=== PATIENT | female | born 1980 | race Hispanic/Latino ===

== ENCOUNTER 2021-07-12 08:28 | Emergency (ER) | payer SELFPAY ==
[2021-07-12] MEDS ORDERED: Ketorolac Tromethamine 30 MG/ML VIAL ONE (10:04)
[2021-07-12] MEDS ORDERED: Clindamycin/D5W 900 mg/50 ml Premix Bag ONE (10:04)
[2021-07-12] MEDS ORDERED: Boostrix 0.5 ML (Tdap) VIAL ONE (10:04)
[2021-07-12] MEDS ORDERED: Lidocaine 1% (PF) 30 ML VIAL ONE (10:07)
[2021-07-12 11:01] LABS: #Eosinphils 0.1 thou/uL (0.0-0.7); #Lymphocytes 3.3 thou/uL (1.20-3.40); #Monocytes 0.4 thou/uL (0.11-0.59); %Basophils 0.4 % (0.0-1.0); %Eosinophils 0.8 % (0.0-10.0); %Lymphocytes 33.5 % (21.0-51.0); %Monocytes 3.9 % (0.0-10.0); %Neutrophils 61.4 % (42.0-75.0); Hemoglobin 14.9 g/dL (12.0-16.0); Mean Corpuscular HGB CONC 35.2 g/dL (32.0-36.0); Mean Platelet Volume 7.5 fL (7.4-10.4); Platelet Count 381 thou/uL (130-400); RBC Distribution Width 11.6 % (11.5-14.5); Red Blood Cell (RBC) Count 4.81 mill/uL (4.20-5.40); White Blood Cell (WBC) Count 9.8 thou/uL (4.8-10.8)
[2021-07-12 11:23] LABS: ALT (SGPT) 15 U/L (8-55); AST (SGOT) 14 U/L (5-34); Albumin 3.2 g/dL (3.5-5.0); Alkaline Phosphatase 70 U/L (40-110); Anion Gap 11 mmol/L (10-20); BUN (Urea Nitrogen) 8 mg/dL (7.0-18.7); Bilirubin, Total 0.3 mg/dL (0.2-1.2); Calc. Creatinine Clearance 0 mL/min (70-130); Carbon Dioxide 28 mmol/L (22-29); Chloride 97 mmol/L (98-107); Globulin 4.1 g/dL (2.4-3.5); Glucose 458 mg/dL (70-105); Potassium 3.9 mmol/L (3.5-5.1); Protein, Total 7.3 g/dL (6.0-8.3); Sodium 132 mmol/L (136-145)
== END 2021-07-12 12:20 | disposition home or self-care (01) ==
LOC: ERS 08:28
DX: L72.3 Sebaceous cyst (principal); E11.9 Type 2 diabetes mellitus without complications; F17.210 Nicotine dependence, cigarettes, uncomplicated; Z79.4 Long term (current) use of insulin; Z79.84 Long term (current) use of oral hypoglycemic drugs
CPT/HCPCS: 10060; 80053; 83605; 85025; 87040; 90471; 90715; 96365; 96375; J1885; J2001; J3490

== ENCOUNTER 2021-07-15 18:21 | Emergency (ER) | payer SELFPAY ==
[2021-07-15 19:42] LABS: Bilirubin Negative (Negative); Blood, Urine Negative (Negative); Clarity Clear (Clear); Glucose, Urine (Dipstick) Greater than 1000 mg/dL (Negative); Ketone, Urine Negative (Negative); Leukocyte Negative Leu/uL (Negative); Nitrite Negative (Negative); Protein, Urine (Dipstick) Negative (Neg-Trace); Specific Gravity, Urine 1.026 (1.002-1.036); Urobilinogen Normal mg/dL (Less than 2); pH, Urine 5.5 (5.0-9.0)
[2021-07-15] MEDS ORDERED: Ondansetron PF 4 MG/2 ML Vial ONE (19:47)
[2021-07-15 19:56] LABS: #Eosinphils 0.1 thou/uL (0.0-0.7); #Lymphocytes 3.6 thou/uL (1.20-3.40); #Monocytes 0.4 thou/uL (0.11-0.59); %Basophils 0.4 % (0.0-1.0); %Eosinophils 0.8 % (0.0-10.0); %Lymphocytes 35.4 % (21.0-51.0); %Monocytes 4.1 % (0.0-10.0); %Neutrophils 59.4 % (42.0-75.0); Hemoglobin 12.9 g/dL (12.0-16.0); Mean Corpuscular HGB CONC 35.6 g/dL (32.0-36.0); Mean Corpuscular Volume 87.1 fL (78.0-98.0); Mean Platelet Volume 7.3 fL (7.4-10.4); Platelet Count 366 thou/uL (130-400); RBC Distribution Width 11.6 % (11.5-14.5); Red Blood Cell (RBC) Count 4.16 mill/uL (4.20-5.40); White Blood Cell (WBC) Count 10.1 thou/uL (4.8-10.8)
[2021-07-15 20:21] LABS: ALT (SGPT) 18 U/L (8-55); AST (SGOT) 9 U/L (5-34); Albumin 3.2 g/dL (3.5-5.0); Alkaline Phosphatase 96 U/L (40-110); Anion Gap 11 mmol/L (10-20); BUN (Urea Nitrogen) 12 mg/dL (7.0-18.7); Bilirubin, Total 0.2 mg/dL (0.2-1.2); Calc. Creatinine Clearance 0 mL/min (70-130); Calcium 8.8 mg/dL (7.8-10.44); Carbon Dioxide 27 mmol/L (22-29); Chloride 95 mmol/L (98-107); Globulin 3.2 g/dL (2.4-3.5); Potassium 4.4 mmol/L (3.5-5.1); Protein, Total 6.4 g/dL (6.0-8.3); Sodium 129 mmol/L (136-145)
[2021-07-15 20:23] LABS: Glucose 584 mg/dL (70-105)
[2021-07-15] MEDS ORDERED: Insulin Regular 300 UNITS/3 ML VIAL ONE (20:26)
[2021-07-15 20:44] LABS: Actual Bicarbonate (HCO3v) 26 mEq/L (22-28); Analyzer IN Cardio ER; Base Excess 1.4 mEq/L (-2.0 to +3.0); Calcium, Ionized (venous) 1.08 mmol/L (1.16-1.32); Chloride (VBG) 96 mmol/L (98-106); Hemoglobin (Hb) 13.9 g/dL (11.7-15.5); Potassium (VBG) 4.05 mmol/L (3.70-5.30); Sodium 129.3 mmol/L (133-146); pH (venous) 7.44 (7.32-7.43)
== END 2021-07-15 21:58 | disposition home or self-care (01) ==
LOC: ERS 18:21
DX: E11.65 Type 2 diabetes mellitus with hyperglycemia (principal); E78.5 Hyperlipidemia, unspecified; F17.210 Nicotine dependence, cigarettes, uncomplicated; Z79.84 Long term (current) use of oral hypoglycemic drugs; Z79.4 Long term (current) use of insulin; Z79.899 Other long term (current) drug therapy
CPT/HCPCS: 36415; 36416; 71045; 80053; 81003; 82805; 84484; 85025; 93005; 96374; 96375; J1815; J2405

== ENCOUNTER 2021-07-21 11:01 | Emergency (ER) | payer SELFPAY ==
[2021-07-21] MEDS ORDERED: Insulin Regular 300 UNITS/3 ML VIAL ONE (11:42)
[2021-07-21 12:04] LABS: #Basophils 0.1 thou/uL (0.0-0.2); #Eosinphils 0.1 thou/uL (0.0-0.7); #Lymphocytes 2.6 thou/uL (1.20-3.40); #Monocytes 0.4 thou/uL (0.11-0.59); #Neutrophils 5.3 thou/uL (1.40-6.50); %Basophils 0.8 % (0.0-1.0); %Eosinophils 0.7 % (0.0-10.0); %Neutrophils 62.5 % (42.0-75.0); Hemoglobin 14.7 g/dL (12.0-16.0); Mean Corpuscular HGB CONC 35.5 g/dL (32.0-36.0); Mean Corpuscular Volume 87.2 fL (78.0-98.0); Mean Platelet Volume 7.5 fL (7.4-10.4); Platelet Count 343 thou/uL (130-400); RBC Distribution Width 12.2 % (11.5-14.5); Red Blood Cell (RBC) Count 4.73 mill/uL (4.20-5.40); White Blood Cell (WBC) Count 8.5 thou/uL (4.8-10.8)
[2021-07-21 12:05] LABS: Bilirubin Negative (Negative); Blood, Urine Negative (Negative); Clarity Clear (Clear); Glucose, Urine (Dipstick) Greater than 1000 mg/dL (Negative); Ketone, Urine Negative (Negative); Leukocyte Negative Leu/uL (Negative); Nitrite Negative (Negative); Protein, Urine (Dipstick) Negative (Neg-Trace); Specific Gravity, Urine 1.036 (1.002-1.036); Urobilinogen Normal mg/dL (Less than 2); pH, Urine 6.5 (5.0-9.0)
[2021-07-21 12:24] LABS: ALT (SGPT) 20 U/L (8-55); AST (SGOT) 13 U/L (5-34); Albumin 3.5 g/dL (3.5-5.0); Alkaline Phosphatase 96 U/L (40-110); Anion Gap 12 mmol/L (10-20); BUN (Urea Nitrogen) 11 mg/dL (7.0-18.7); Bilirubin, Total 0.2 mg/dL (0.2-1.2); Calc. Creatinine Clearance 0 mL/min (70-130); Carbon Dioxide 27 mmol/L (22-29); Chloride 95 mmol/L (98-107); Globulin 3.8 g/dL (2.4-3.5); Glucose 424 mg/dL (70-105); Lipase 62 U/L (8-78); Magnesium 1.7 mg/dL (1.6-2.6); Protein, Total 7.3 g/dL (6.0-8.3); Sodium 130 mmol/L (136-145)
== END 2021-07-21 13:15 | disposition home or self-care (01) ==
LOC: ERS 11:01
DX: E11.65 Type 2 diabetes mellitus with hyperglycemia (principal); E78.5 Hyperlipidemia, unspecified; F17.210 Nicotine dependence, cigarettes, uncomplicated; Z79.4 Long term (current) use of insulin; Z79.84 Long term (current) use of oral hypoglycemic drugs; Z79.899 Other long term (current) drug therapy
CPT/HCPCS: 36416; 80053; 81003; 82010; 83690; 83735; 84100; 85025; 96374; J1815